=== PATIENT | female | born 1955 | race Caucasian/White ===

== ENCOUNTER 2020-09-20 17:28 | Inpatient (IN) | payer BC, OTHER ==
[~2020-09-20] VITALS: Ht 157.5 cm; Wt 59.1 kg
[~2020-09-20 17:28] MED LIST: ALPR-624 PO; BUSP10TA11 PO; CHOL100024 PO; FERR-29 PO; HYDR-3686 PO; LOSA1TAB36 PO; LOVA20TA2 PO; OMEP20TA5 PO; VENL25TA48 PO
[2020-09-20 18:15] LABS: BASOPHILS % (AUTO) 0.1 % (0-1); EOSINOPHILS % (AUTO) 0 % (0-6); HEMATOCRIT 34.4 % (35.0-45.0); HEMOGLOBIN 11.7 g/dl (12.0-16.0); LYMPHOCYTES # (AUTO) 0.9 X10'3 (1.1-4.8); LYMPHOCYTES % (AUTO) 7.5 % (21-51); MEAN CORPUSCULAR HGB CONC 34.2 g/dL (33.0-36.5); MEAN CORPUSCULAR VOLUME 96.6 FL (78-98); MONOCYTES # (AUTO) 0.7 X10'3 (0-0.9); MONOCYTES % (AUTO) 5.6 % (2-12); NEUTROPHILS # (AUTO) 10.3 X10'3 (1.8-7.7); NEUTROPHILS % (AUTO) 86.8 % (42-75); PLATELET COUNT 315 X10'3 (140-440); RED BLOOD COUNT 3.56 X10'6 (4.20-5.60); RED CELL DISTRIBUTION WIDTH 13.8 % (11.5-14.5); WHITE BLOOD COUNT 11.9 X10'3 (4.5-11.0)
[2020-09-20] MEDS ORDERED: normal saline 1000ml 1,000 ML IV ONE ×2 (18:20→19:25)
[2020-09-20] MEDS ORDERED: ondansetron/PF 4mg/2ml inj IV ONE (18:20)
--- NOTE | 2020-09-20 18:20 | NUR ---
REPORTS PAIN BECAUSE OF NO WATER THEN STATES NOT IN THAT MUCH PAIN
--- NOTE | 2020-09-20 18:28 | NUR ---
PT TO CT
[2020-09-20 18:31] LABS: CLARITY,URINE CLOUDY (Clear); COLOR,URINE YELLOW (Yellow); GLUCOSE, URINE NEGATIVE (Neg); KETONES,URINE NEGATIVE (Neg); LEUKOCYTE ESTERASE ,URINE TRACE (Neg); NITRITES, URINE NEGATIVE (Neg); OCCULT BLOOD,URINE LARGE (Neg); PROTEIN,URINE NEGATIVE (Neg); UROBILINOGEN,URINE 0.2 E.U/dL (0.2-1.0)
[2020-09-20 18:36] LABS: UA COLLECTION TYPE STRAIGHT CATH
[2020-09-20 18:38] LABS: ALANINE AMINOTRANSFERASE 14 U/L (12-78); ALBUMIN 3.6 G/DL (3.4-5.0); ALBUMIN/GLOBULIN RATIO 0.8 (1.1-1.5); ALKALINE PHOSPHATASE 111 IU/L (46-116); ANION GAP 18 (8-16); ASPARTATE AMINO TRANSFERASE 18 U/L (10-37); BILIRUBIN,TOTAL 1.4 MG/DL (0.1-1.0); BLOOD UREA NITROGEN 71 MG/DL (7-18); BUN/CREATININE RATIO 26.5 (6.6-38.0); CALCIUM 10.5 MG/DL (8.5-10.1); CHLORIDE 85 MMOL/L (99-107); CREATININE 2.68 MG/DL (0.40-0.90); GLUCOSE 145 MG/DL (70-104); SODIUM 130 MMOL/L (135-145); TOTAL CARBON DIOXIDE 27.4 MMOL/L (24-32); TOTAL PROTEIN 8.1 G/DL (6.4-8.2); eGFR 18 ML/MIN
[2020-09-20 18:39] LABS: AMORPHOUS URATES 1+; BACTERIA,URINE 4+ /HPF (Neg); RBC,URINE 20-50 /HPF (0-2); SQUAMOUS EPITHELIAL CELL,UR FEW /LPF (FEW); URIC ACID CRYSTALS 3+ /HPF (NEGATIVE); WBC,URINE 0-4 /HPF (0-4)
[2020-09-20 18:41] LABS: URINE AMPHETAMINE SCREEN NEGATIVE (Neg); URINE BARBITUATE SCREEN NEGATIVE (Neg); URINE BENZODIAZEPINES SCREEN NEGATIVE (Neg); URINE CANNABINOID SCREEN NEGATIVE (Neg); URINE COCAINE SCREEN NEGATIVE (Neg); URINE METHADONE SCREEN NEGATIVE (Neg); URINE OPIATE SCREEN NEGATIVE (Neg); URINE PHENCYCLIDINE SCREEN NEGATIVE (Neg)
[2020-09-20 18:43] LABS: POTASSIUM 2.8 MMOL/L (3.5-5.1)
[2020-09-20] MEDS ORDERED: potassium Cl 10 mEq/100mL bag IV ONE (18:45)
[2020-09-20 19:06] LABS: CREATINE KINASE 72 U/L (26-192)
--- NOTE | 2020-09-20 19:08 | NUR ---
patient in radiology
--- NOTE | 2020-09-20 19:11 | NUR ---
Sister Silvana Leeanacora [phone] called want medical information advised can not give over te;ephone she statwes she is from [place]. Advised I would have sister call her.
--- NOTE | 2020-09-20 19:13 | NUR ---
just returned from CT
--- NOTE | 2020-09-20 19:20 | NUR ---
APURVA SISTER [phone]
[2020-09-20] MEDS ORDERED: potassium Cl 20 mEq SR tablet PO PRN (19:40)
[2020-09-20] MEDS ORDERED: magnesium 2GM in 50ml NS 50 ML IV PRN (19:40)
[2020-09-20] MEDS ORDERED: mag hydrox/Alum hydrox/simeth 30ml oral suspension PO PRN (19:40)
[2020-09-20] MEDS ORDERED: magnesium hydroxide 30ml (MOM) UD suspension PO PRN (19:40)
[2020-09-20] MEDS ORDERED: potassium Cl 40MEQ/1/2NS 520ml 520 ML IV PRN ×2 (19:40)
[2020-09-20] MEDS ORDERED: magnesium Cl slow-release 64mg tablet PO PRN (19:40)
[2020-09-20] MEDS ORDERED: acetaminophen 325mg tablet PO PRN (19:40)
[2020-09-20] MEDS ORDERED: magnesium 4gm in 100ml NS 100 ML IV PRN (19:40)
[2020-09-20] MEDS ORDERED: ondansetron/PF 4mg/2ml inj IV PRN (19:40)
[2020-09-20] MEDS: K and/or MAG REPLACEMENT MC SCH (20:00)
[2020-09-20] MEDS: normal saline 1000ml 1,000 ML IV SCH (20:15)
--- NOTE | 2020-09-20 21:09 | NUR ---
PATIETN REQUESTING FOOD AND JUICE
[2020-09-20 22:00] VITALS: BP 116/75
[2020-09-20] MEDS: HYDROcodone/acetaminophen 5mg/325mg tablet PO PRN (22:34)
[2020-09-20] MEDS: potassium Cl 20 mEq SR tablet PO PRN (23:31)
[2020-09-21 02:00] VITALS: BP 126/79
[2020-09-21] MEDS: potassium Cl 20 mEq SR tablet PO PRN (03:47)
[2020-09-21] MEDS: normal saline 1000ml 1,000 ML IV SCH ×4 (03:47→23:20)
[2020-09-21 06:00] VITALS: BP 105/68
--- NOTE | 2020-09-21 06:22 | NUR ---
Problems reprioritized. Patient report given, questions answered & plan of care reviewed with OLEG CALI.
[2020-09-21 07:13] LABS: BASOPHILS % (AUTO) 0.1 % (0-1); EOSINOPHILS % (AUTO) 0.2 % (0-6); HEMATOCRIT 25.7 % (35.0-45.0); LYMPHOCYTES # (AUTO) 0.8 X10'3 (1.1-4.8); LYMPHOCYTES % (AUTO) 8.1 % (21-51); MEAN CORPUSCULAR HEMOGLOBIN 33.9 PG (27.0-31.0); MEAN CORPUSCULAR HGB CONC 34.9 g/dL (33.0-36.5); MEAN CORPUSCULAR VOLUME 97.1 FL (78-98); MEAN PLATELET VOLUME 8.8 FL (7.4-10.4); MONOCYTES # (AUTO) 0.6 X10'3 (0-0.9); MONOCYTES % (AUTO) 6.1 % (2-12); NEUTROPHILS # (AUTO) 8.7 X10'3 (1.8-7.7); NEUTROPHILS % (AUTO) 85.5 % (42-75); PLATELET COUNT 191 X10'3 (140-440); RED BLOOD COUNT 2.65 X10'6 (4.20-5.60); RED CELL DISTRIBUTION WIDTH 13.8 % (11.5-14.5); WHITE BLOOD COUNT 10.2 X10'3 (4.5-11.0)
[2020-09-21 07:32] LABS: ALANINE AMINOTRANSFERASE 9 U/L (12-78); ALBUMIN 2.6 G/DL (3.4-5.0); ALBUMIN/GLOBULIN RATIO 0.8 (1.1-1.5); ALKALINE PHOSPHATASE 75 IU/L (46-116); ANION GAP 10 (8-16); ASPARTATE AMINO TRANSFERASE 12 U/L (10-37); BILIRUBIN,TOTAL 0.9 MG/DL (0.1-1.0); BLOOD UREA NITROGEN 59 MG/DL (7-18); BUN/CREATININE RATIO 29.2 (6.6-38.0); CHLORIDE 96 MMOL/L (99-107); CREATININE 2.02 MG/DL (0.40-0.90); GLUCOSE 124 MG/DL (70-104); MAGNESIUM 2.1 MG/DL (1.5-2.4); POTASSIUM 3.5 MMOL/L (3.5-5.1); SODIUM 133 MMOL/L (135-145); TOTAL CARBON DIOXIDE 27.1 MMOL/L (24-32); TOTAL PROTEIN 5.7 G/DL (6.4-8.2); eGFR 25 ML/MIN
[2020-09-21 07:38] LABS: CALCIUM 8.2 MG/DL (8.5-10.1)
[2020-09-21] MEDS: HYDROcodone/acetaminophen 5mg/325mg tablet PO PRN ×2 (07:58→13:32)
[2020-09-21] MEDS: CefTRIAXone/D5W-Rocephin 1gm 50 ML IV SCH (08:24)
[2020-09-21] MEDS ORDERED: LOVA40TA2 PO (08:40)
[2020-09-21] MEDS ORDERED: ALBU8.5H8 INH (08:40)
[2020-09-21] MEDS ORDERED: VENL100T4 PO (08:40)
[2020-09-21] MEDS ORDERED: HYDR-3686 PO (08:40)
[2020-09-21] MEDS ORDERED: CHOL10006 PO (08:40)
[2020-09-21] MEDS ORDERED: CALC-853 PO (08:40)
[2020-09-21] MEDS ORDERED: LORA-657 PO (08:40)
[2020-09-21] MEDS ORDERED: BUSP10TA3 PO (08:40)
[2020-09-21] MEDS ORDERED: OMEP40CA13 PO (08:40)
[2020-09-21] MEDS ORDERED: LOSA100T57 PO (08:40)
[2020-09-21 11:00] VITALS: BP 98/68
[2020-09-21 15:00] VITALS: BP 149/80
--- NOTE | 2020-09-21 15:01 | NUR ---
Malnutrition consult: Pt presented with hypokalemia, acute kidney injury, and failure to thrive. Pt CT abdominal pelvis found with left renal pelvis calculi, diverticulosis, and impacted feces per MD notes. Per ED, pt reports falling multiple times in the last week and not eating for 7 days. Pt last BM 2. Noted, pt receiving regular diet, ate 25% of turkey sandwich last night 09/20. Visited pt at bed side, pt seems to be confused, pt reports not having a good appetite but shows interests in eating and drinking. Pt requested food and juice per nurse's notes 09/20. Obtained food preference, pt dislikes mayonnaise, and requested cranberry juice and apple juice with meals, d/w dietary. Encouraged pt to eat. Pt current weight is not scaled. Pt reports significant weight loss over the pass three months, however could not remember previous weight. Recommend scaled weight to be taken. There is no significant weight loss within 3 years time per weight history. Pt has no edema per EMR. During bed side visit, pt has no visible sign of orbital and clavicular muscle and fat wasting. Based from assessment, there is no evidence of malnutrition. Will continue to monitor weight and PO intake. Addendum: 09/21/20 at [address] THERESA agree with undergraduate intern note
[2020-09-21] MEDS ORDERED: albuterol 2.5 MG/3 ML nebule NEB PRN (16:15)
[2020-09-21] MEDS ORDERED: loratadine 10mg tablet PO PRN (16:15)
[2020-09-21 18:00] VITALS: BP 114/69
--- NOTE | 2020-09-21 18:11 | NUR ---
SBAR report given to William CALI, EMAR reviewed, questions answered.
--- NOTE | 2020-09-21 18:13 | NUR ---
Patient in room PCU 3027. I have received report from Jefe CALI and had the opportunity to ask questions and assume patient care.
--- NOTE | 2020-09-21 19:08 | NUR ---
intervention charting and medication reassessments not done by previous shift.
[2020-09-21] MEDS: K and/or MAG REPLACEMENT MC SCH ×2 (19:11→19:27)
[2020-09-21] MEDS: busPIRone 5mg tablet PO SCH ×2 (19:18→21:00)
[2020-09-21] MEDS: venlafaxine 25mg tablet PO SCH (19:18)
[2020-09-21] MEDS: pantoprazole 40mg Tablet.DR PO SCH (19:19)
[2020-09-21] MEDS: lactobacillus rhamnosus 10,000 MMU CELLS/CAPSULE PO SCH (19:19)
[2020-09-21 22:01] VITALS: BP 124/78
[2020-09-22] MEDS: normal saline 1000ml 1,000 ML IV SCH ×5 (01:40→16:24)
[2020-09-22 02:00] VITALS: BP 116/76
[2020-09-22 06:00] VITALS: BP 128/89
[2020-09-22 06:35] LABS: BASOPHILS % (AUTO) 0.1 % (0-1); EOSINOPHILS % (AUTO) 0.4 % (0-6); HEMATOCRIT 30.2 % (35.0-45.0); HEMOGLOBIN 10.6 g/dl (12.0-16.0); LYMPHOCYTES # (AUTO) 0.8 X10'3 (1.1-4.8); MEAN CORPUSCULAR HEMOGLOBIN 34.1 PG (27.0-31.0); MEAN CORPUSCULAR VOLUME 97.3 FL (78-98); MEAN PLATELET VOLUME 8.6 FL (7.4-10.4); MONOCYTES # (AUTO) 0.6 X10'3 (0-0.9); MONOCYTES % (AUTO) 6.5 % (2-12); NEUTROPHILS # (AUTO) 7.8 X10'3 (1.8-7.7); PLATELET COUNT 192 X10'3 (140-440); RED CELL DISTRIBUTION WIDTH 13.9 % (11.5-14.5); WHITE BLOOD COUNT 9.3 X10'3 (4.5-11.0)
[2020-09-22 07:01] LABS: ALANINE AMINOTRANSFERASE 10 U/L (12-78); ALBUMIN 2.6 G/DL (3.4-5.0); ALBUMIN/GLOBULIN RATIO 0.7 (1.1-1.5); ALKALINE PHOSPHATASE 75 IU/L (46-116); ANION GAP 12 (8-16); ASPARTATE AMINO TRANSFERASE 13 U/L (10-37); BILIRUBIN,TOTAL 0.7 MG/DL (0.1-1.0); BLOOD UREA NITROGEN 40 MG/DL (7-18); BUN/CREATININE RATIO 28.6 (6.6-38.0); CALCIUM 8.5 MG/DL (8.5-10.1); CHLORIDE 96 MMOL/L (99-107); GLUCOSE 94 MG/DL (70-104); MAGNESIUM 1.9 MG/DL (1.5-2.4); POTASSIUM 3.6 MMOL/L (3.5-5.1); SODIUM 131 MMOL/L (135-145); TOTAL CARBON DIOXIDE 22.8 MMOL/L (24-32); TOTAL PROTEIN 6.1 G/DL (6.4-8.2); eGFR 38 ML/MIN
[2020-09-22] MEDS: CefTRIAXone/D5W-Rocephin 1gm 50 ML IV SCH (07:54)
[2020-09-22] MEDS: vitamin D (cholecalciferol) 1,000 unit tablet PO SCH (07:58)
[2020-09-22] MEDS: busPIRone 5mg tablet PO SCH ×4 (07:58→22:42)
[2020-09-22] MEDS: lactobacillus rhamnosus 10,000 MMU CELLS/CAPSULE PO SCH ×2 (07:58→20:03)
[2020-09-22] MEDS: venlafaxine 25mg tablet PO SCH ×2 (07:58→20:04)
[2020-09-22] MEDS: atorvastatin 10mg tablet PO SCH (07:58)
[2020-09-22] MEDS: pantoprazole 40mg Tablet.DR PO SCH ×2 (07:58→20:04)
[2020-09-22] MEDS: calcium carbonate/vitamin D3 tablet PO SCH (07:59)
[2020-09-22] MEDS: HYDROcodone/acetaminophen 5mg/325mg tablet PO PRN ×4 (07:59→22:42)
[2020-09-22] MEDS: K and/or MAG REPLACEMENT MC SCH ×2 (08:02→20:00)
[2020-09-22 10:00] VITALS: BP 118/56
--- NOTE | 2020-09-22 10:20 | NUR ---
pt BP dropped to 69/47, pt became dizzy while standing with PT, pt returned to bed BP now 97/63, and pt no longer dizzy.
--- NOTE | 2020-09-22 12:45 | NUR ---
Patient in room U 3027. I have received report from MURALI CALI and had the opportunity to ask questions and assume patient care. PT RELAXING. CALL LIGHT IN REACH Addendum: 09/22/20 at 1610 by Lexus Sauceda RN Amended: Links added.
--- NOTE | 2020-09-22 13:32 | NUR ---
Received TC from RN that pt requesting to speak with RD for food preferences. Pt on a regular diet documented with 0-25% PO intake and meal refusals. Pt seen at bedside, food preferences were obtained for dinner tonight and breakfast tomorrow which were d/w dietary. Pt states she is not getting what she is requesting, including current lunch tray, however noted that pt received the food that was selected on menu visible at bedside. RD educated patient on how to fill out her menu in order to choose what she receives on meal trays. RD d/w dietary to visit patient daily to further assist with menu selection. Pt provided with alternative regular menu and RD contact information. RD encouraged PO intake and for pt to reach out for any further food preferences. Will continue to follow closely. Addendum: 09/22/20 at [address] Amended: Links added.
--- NOTE | 2020-09-22 15:15 | NUR ---
Problems reprioritized. Patient report given, questions answered & plan of care reviewed with EVANS CALI. Addendum: 09/22/20 at 1611 by Lexus Sauceda RN Amended: Links added.
--- NOTE | 2020-09-22 15:24 | NUR ---
Patient in room PCU 3027. I have received report from KARELY Alberts and had the opportunity to ask questions and assume patient care.
[2020-09-22 15:57] VITALS: BP 98/65
--- NOTE | 2020-09-22 18:21 | NUR ---
Problems reprioritized. Patient report given, questions answered & plan of care reviewed with KARELY Christie.
[2020-09-22 19:00] VITALS: BP 102/70
[2020-09-22 23:00] VITALS: BP 114/63
[2020-09-23] VITALS (7 sets, daily range): BP systolic 80–109; BP diastolic 36–68
--- NOTE | 2020-09-23 06:26 | NUR ---
Patient in room PCU 3027. I have received report from KARELY Christie and had the opportunity to ask questions and assume patient care.
[2020-09-23 06:52] LABS: EOSINOPHILS # (AUTO) 0.1 X10'3 (0-0.9); WHITE BLOOD COUNT 6.1 X10'3 (4.5-11.0)
[2020-09-23 06:56] LABS: BASOPHILS % (AUTO) 0.1 % (0-1); EOSINOPHILS % (AUTO) 1.1 % (0-6); HEMATOCRIT 23.2 % (35.0-45.0); HEMOGLOBIN 8.2 g/dl (12.0-16.0); LYMPHOCYTES % (AUTO) 17.1 % (21-51); MEAN CORPUSCULAR HEMOGLOBIN 34.2 PG (27.0-31.0); MEAN CORPUSCULAR HGB CONC 35.4 g/dL (33.0-36.5); MEAN CORPUSCULAR VOLUME 96.4 FL (78-98); MEAN PLATELET VOLUME 8.6 FL (7.4-10.4); MONOCYTES # (AUTO) 0.4 X10'3 (0-0.9); MONOCYTES % (AUTO) 6.3 % (2-12); NEUTROPHILS # (AUTO) 4.6 X10'3 (1.8-7.7); NEUTROPHILS % (AUTO) 75.4 % (42-75); PLATELET COUNT 164 X10'3 (140-440); RED BLOOD COUNT 2.41 X10'6 (4.20-5.60); RED CELL DISTRIBUTION WIDTH 13.7 % (11.5-14.5)
[2020-09-23 07:24] LABS: ALANINE AMINOTRANSFERASE 8 U/L (12-78); ALBUMIN 2.1 G/DL (3.4-5.0); ALBUMIN/GLOBULIN RATIO 0.7 (1.1-1.5); ALKALINE PHOSPHATASE 65 IU/L (46-116); ANION GAP 9 (8-16); ASPARTATE AMINO TRANSFERASE 10 U/L (10-37); BILIRUBIN,TOTAL 0.5 MG/DL (0.1-1.0); BLOOD UREA NITROGEN 27 MG/DL (7-18); BUN/CREATININE RATIO 22.9 (6.6-38.0); CALCIUM 8.4 MG/DL (8.5-10.1); CHLORIDE 101 MMOL/L (99-107); CREATININE 1.18 MG/DL (0.40-0.90); GLUCOSE 76 MG/DL (70-104); MAGNESIUM 1.6 MG/DL (1.5-2.4); POTASSIUM 3.5 MMOL/L (3.5-5.1); SODIUM 134 MMOL/L (135-145); TOTAL CARBON DIOXIDE 23.9 MMOL/L (24-32); TOTAL PROTEIN 5.1 G/DL (6.4-8.2); eGFR 46 ML/MIN
[2020-09-23] MEDS: K and/or MAG REPLACEMENT MC SCH ×2 (08:00→20:00)
--- NOTE | 2020-09-23 08:37 | NUR ---
I documented that the patient's norco reassessment wasn't done because it was to be documented on 09/22/20 at 2342, I was not here at this time.
[2020-09-23] MEDS: CefTRIAXone/D5W-Rocephin 1gm 50 ML IV SCH (08:39)
[2020-09-23] MEDS: normal saline 1000ml 1,000 ML IV SCH ×2 (08:39→13:36)
[2020-09-23] MEDS: venlafaxine 25mg tablet PO SCH ×2 (08:40→19:59)
[2020-09-23] MEDS: pantoprazole 40mg Tablet.DR PO SCH ×2 (08:40→19:59)
[2020-09-23] MEDS: lactobacillus rhamnosus 10,000 MMU CELLS/CAPSULE PO SCH (08:41)
[2020-09-23] MEDS: calcium carbonate/vitamin D3 tablet PO SCH (08:41)
[2020-09-23] MEDS: vitamin D (cholecalciferol) 1,000 unit tablet PO SCH (08:41)
[2020-09-23] MEDS: busPIRone 5mg tablet PO SCH ×4 (08:41→22:32)
[2020-09-23] MEDS: atorvastatin 10mg tablet PO SCH (08:41)
[2020-09-23] MEDS: HYDROcodone/acetaminophen 5mg/325mg tablet PO PRN ×2 (08:44→13:35)
--- NOTE | 2020-09-23 18:34 | NUR ---
Problems reprioritized. Patient report given, questions answered & plan of care reviewed with KARELY Christie.
[2020-09-23] MEDS: polyethylene glycol 3350 17gm powd pack PO SCH (22:32)
[2020-09-24] VITALS (8 sets, daily range): BP systolic 75–146; BP diastolic 54–76
[2020-09-24] MEDS: normal saline 1000ml 1,000 ML IV SCH ×2 (04:40→15:12)
--- NOTE | 2020-09-24 06:29 | NUR ---
Patient in room PCU 3027. I have received report from Shahnaz CALI and had the opportunity to ask questions and assume patient care.
[2020-09-24] MEDS: atorvastatin 10mg tablet PO SCH (07:43)
[2020-09-24] MEDS: busPIRone 5mg tablet PO SCH ×4 (07:43→20:50)
[2020-09-24] MEDS: venlafaxine 25mg tablet PO SCH ×2 (07:43→20:50)
[2020-09-24] MEDS: pantoprazole 40mg Tablet.DR PO SCH ×2 (07:43→20:50)
[2020-09-24] MEDS: vitamin D (cholecalciferol) 1,000 unit tablet PO SCH (07:43)
[2020-09-24] MEDS: calcium carbonate/vitamin D3 tablet PO SCH (07:44)
[2020-09-24] MEDS: HYDROcodone/acetaminophen 5mg/325mg tablet PO PRN ×2 (07:45→20:49)
[2020-09-24] MEDS: K and/or MAG REPLACEMENT MC SCH ×2 (08:00→19:51)
--- NOTE | 2020-09-24 10:03 | NUR ---
I let Dr. Clark know that special education secretary tried to draw blood on this patient but not successful as it was a difficult draw. I told him that I will also look at patient's vein to see if I can draw blood. Per Dr. Clark, it is okay not to do it if we could not really get the blood sample
[2020-09-24] MEDS ORDERED: fludrocortisone acetate 0.1mg tablet PO ONE (10:15)
[2020-09-24 11:14] LABS: BASOPHILS % (AUTO) 0.2 % (0-1); EOSINOPHILS # (AUTO) 0.1 X10'3 (0-0.9); EOSINOPHILS % (AUTO) 0.9 % (0-6); HEMATOCRIT 25.9 % (35.0-45.0); HEMOGLOBIN 8.8 g/dl (12.0-16.0); LYMPHOCYTES # (AUTO) 1.2 X10'3 (1.1-4.8); LYMPHOCYTES % (AUTO) 13.8 % (21-51); MEAN CORPUSCULAR HEMOGLOBIN 33.7 PG (27.0-31.0); MEAN CORPUSCULAR HGB CONC 33.9 g/dL (33.0-36.5); MEAN CORPUSCULAR VOLUME 99.3 FL (78-98); MONOCYTES # (AUTO) 0.6 X10'3 (0-0.9); MONOCYTES % (AUTO) 7.7 % (2-12); NEUTROPHILS # (AUTO) 6.5 X10'3 (1.8-7.7); NEUTROPHILS % (AUTO) 77.4 % (42-75); PLATELET COUNT 218 X10'3 (140-440); RED BLOOD COUNT 2.61 X10'6 (4.20-5.60); WHITE BLOOD COUNT 8.4 X10'3 (4.5-11.0)
[2020-09-24 11:15] LABS: % IRON SATURATION 18 % (11-46); IRON 33 UG/DL (49-151); TOTAL IRON BINDING CAPACITY 179 UG/DL (259-388)
[2020-09-24 11:18] LABS: ALANINE AMINOTRANSFERASE 8 U/L (12-78); ALBUMIN 2.3 G/DL (3.4-5.0); ALBUMIN/GLOBULIN RATIO 0.7 (1.1-1.5); ALKALINE PHOSPHATASE 75 IU/L (46-116); ANION GAP 11 (8-16); ASPARTATE AMINO TRANSFERASE 12 U/L (10-37); BILIRUBIN,TOTAL 0.6 MG/DL (0.1-1.0); BLOOD UREA NITROGEN 18 MG/DL (7-18); BUN/CREATININE RATIO 15.9 (6.6-38.0); CALCIUM 8.5 MG/DL (8.5-10.1); CHLORIDE 102 MMOL/L (99-107); CREATININE 1.13 MG/DL (0.40-0.90); GLUCOSE 97 MG/DL (70-104); MAGNESIUM 1.3 MG/DL (1.5-2.4); POTASSIUM 3.2 MMOL/L (3.5-5.1); SODIUM 135 MMOL/L (135-145); TOTAL CARBON DIOXIDE 22.3 MMOL/L (24-32); TOTAL PROTEIN 5.6 G/DL (6.4-8.2); eGFR 48 ML/MIN
--- NOTE | 2020-09-24 13:09 | NUR ---
Paged Dr. Clark PAGER ID: [phone] MESSAGE: PAIGE Rene RN ext [phone]. RE: Jen Gannon. K is 3.2 today, K replacement protocol order fell off. Can we renew the K replacement protocol order?
[2020-09-24] MEDS ORDERED: potassium Cl 40MEQ/1/2NS 520ml 520 ML IV PRN (13:15)
[2020-09-24] MEDS ORDERED: potassium Cl 20 mEq SR tablet PO PRN (13:15)
[2020-09-24] MEDS ORDERED: magnesium 4gm in 100ml NS 100 ML IV PRN (13:15)
[2020-09-24] MEDS: potassium Cl 20 mEq SR tablet PO PRN ×2 (13:29→17:44)
--- NOTE | 2020-09-24 13:57 | NUR ---
Madi salazar stocking applied as per doctor's order
--- NOTE | 2020-09-24 15:08 | NUR ---
Report given to Nasrin CALI from Surgical Unit
--- NOTE | 2020-09-24 15:08 | NUR ---
Patient in room MALLORY 359. I have received report from Lisa CALI PCU and had the opportunity to ask questions. Will assume pt care once to unit.
[2020-09-24] MEDS: magnesium Cl slow-release 64mg tablet PO PRN ×2 (15:12→20:48)
--- NOTE | 2020-09-24 15:25 | NUR ---
Pt arrived to Surgical Unit, A&Ox4, no c/o at this time, no s/sx distress/discomfort. Pt assessed, PIV to LFA patent infusing fluids per MD orders. Pt oriented to unit. Will continue to monitor. Addendum: 09/24/20 at 1601 by Kell Burton RN PIV is on RFA.
--- NOTE | 2020-09-24 15:39 | NUR ---
Patient transferred to Surgical Unit room 359A with all her belongings with her.
--- NOTE | 2020-09-24 16:01 | NUR ---
Initial: PO intake has improved from 0-25% to 25-49%, regular diet. Admit with FATEMEH possibly d/t volume depletion per physician progress note, hypokalemia, h/o HTN/HLD, GERD. Potassium is low, receiving IV replacement as needed. Patient has spoken with RD for food preferences as well as to chief of internal medicine. Recommend: 1. continue regular diet 2. honor food preferences 3. encourage PO intake 4. wt per rx 5. monitor need for ONS if intake does not continue to improve Addendum: 09/24/20 at [address] Amended: Links added.
--- NOTE | 2020-09-24 18:32 | NUR ---
Problems reprioritized. Patient report given, questions answered & plan of care reviewed with "Dee Dee CALI.
--- NOTE | 2020-09-24 19:08 | NUR ---
Patient in room MALLORY 359. I have received report from Nasrin CALI and had the opportunity to ask questions and assume patient care.
[2020-09-24] MEDS: polyethylene glycol 3350 17gm powd pack PO SCH (20:52)
[2020-09-25] VITALS (8 sets, daily range): BP systolic 95–151; BP diastolic 59–95
[2020-09-25] MEDS: normal saline 1000ml 1,000 ML IV SCH ×2 (02:51→19:51)
--- NOTE | 2020-09-25 06:09 | NUR ---
Patient in room MALLORY 359. I have received report from Dee Dee CALI and had the opportunity to ask questions and assume patient care.
--- NOTE | 2020-09-25 06:09 | NUR ---
Problems reprioritized. Patient report given, questions answered & plan of care reviewed with Edgard CALI.
--- NOTE | 2020-09-25 06:44 | NUR ---
Patient refused blood draw, she apparently got upset because the bench assembler operator has to draw blood from her. I was there at bedside when patient was cussing at the 2 phlebotomists. Patient was using profanity words. I asked her not to say those words. I also explained to her that it is important that we reevaluate her lab results today especially her K and Mg were both low yesterday and replaced them. Patient continue to be agitated and asked me and the bench assembler operator to get out of the room. I told patient that I will let the doctor know she did not like to have blood draw anymore. Addendum: 09/25/20 at 1024 by Edgard Meza RN Dr. Clark notified about patient refusal of blood draw today, he said it was fine.
[2020-09-25] MEDS: K and/or MAG REPLACEMENT MC SCH ×2 (08:00→20:00)
[2020-09-25] MEDS ORDERED: fludrocortisone acetate 0.1mg tablet PO SCH (08:30)
[2020-09-25] MEDS: calcium carbonate/vitamin D3 tablet PO SCH (08:56)
[2020-09-25] MEDS: vitamin D (cholecalciferol) 1,000 unit tablet PO SCH (08:56)
[2020-09-25] MEDS: venlafaxine 25mg tablet PO SCH ×2 (08:56→20:39)
[2020-09-25] MEDS: busPIRone 5mg tablet PO SCH ×4 (08:57→20:39)
[2020-09-25] MEDS: pantoprazole 40mg Tablet.DR PO SCH ×2 (08:57→20:39)
[2020-09-25] MEDS: atorvastatin 10mg tablet PO SCH (08:57)
[2020-09-25] MEDS ORDERED: iron sucrose complex injection 200 MG in normal saline 100ml IV soln 100 ML IV SCH (09:20)
--- NOTE | 2020-09-25 10:24 | NUR ---
Paged Dr. Clark PAGER ID: [phone] MESSAGE: Radha Rene RN ext [phone]. RE: Jen Gannon. Orthostatic BP lying 123/74, sitting 110/76, standing 92/59.
[2020-09-25] MEDS ORDERED: fludrocortisone acetate 0.1mg tablet PO ONE (14:25)
--- NOTE | 2020-09-25 18:26 | NUR ---
Problems reprioritized. Patient report given, questions answered & plan of care reviewed with Dee Dee CALI.
--- NOTE | 2020-09-25 18:27 | NUR ---
Patient in room MALLORY 359. I have received report from Edgard CALI and had the opportunity to ask questions and assume patient care.
--- NOTE | 2020-09-25 19:52 | NUR ---
Pt IV leaking from insertion site and unable to be saved. IV discontinued. Pt refusing new IV at this time.
[2020-09-25] MEDS: polyethylene glycol 3350 17gm powd pack PO SCH (20:41)
--- NOTE | 2020-09-25 22:04 | NUR ---
Pt educated to the necessity of IV. Pt still refusing.
[2020-09-26] MEDS: normal saline 1000ml 1,000 ML IV SCH ×2 (03:20→09:27)
--- NOTE | 2020-09-26 06:34 | NUR ---
Problems reprioritized. Patient report given, questions answered & plan of care reviewed with Sky CALI.
--- NOTE | 2020-09-26 06:54 | NUR ---
Patient in room MALLORY 359. I have received report from KARELY Funez and had the opportunity to ask questions and assume patient care.
[2020-09-26 07:03] VITALS: BP 128/83
[2020-09-26 07:08] LABS: BASOPHILS % (AUTO) 0.3 % (0-1); EOSINOPHILS # (AUTO) 0.1 X10'3 (0-0.9); EOSINOPHILS % (AUTO) 0.9 % (0-6); HEMOGLOBIN 7.5 g/dl (12.0-16.0); LYMPHOCYTES # (AUTO) 1.2 X10'3 (1.1-4.8); LYMPHOCYTES % (AUTO) 15.9 % (21-51); MEAN CORPUSCULAR HEMOGLOBIN 34.3 PG (27.0-31.0); MEAN CORPUSCULAR HGB CONC 35.5 g/dL (33.0-36.5); MEAN CORPUSCULAR VOLUME 96.8 FL (78-98); MEAN PLATELET VOLUME 7.4 FL (7.4-10.4); MONOCYTES # (AUTO) 0.7 X10'3 (0-0.9); MONOCYTES % (AUTO) 9.6 % (2-12); NEUTROPHILS # (AUTO) 5.4 X10'3 (1.8-7.7); NEUTROPHILS % (AUTO) 73.3 % (42-75); PLATELET COUNT 200 X10'3 (140-440); RED BLOOD COUNT 2.18 X10'6 (4.20-5.60); RED CELL DISTRIBUTION WIDTH 14.4 % (11.5-14.5); WHITE BLOOD COUNT 7.4 X10'3 (4.5-11.0)
[2020-09-26 07:16] LABS: HEMATOCRIT 21.1 % (35.0-45.0)
--- NOTE | 2020-09-26 07:34 | NUR ---
Dr Sam PAGER ID: [phone] MESSAGE: Jarad- Jen Gannon- Critical [facility] 21.1- [place] [phone]
[2020-09-26 07:58] LABS: ALANINE AMINOTRANSFERASE 8 U/L (12-78); ALBUMIN/GLOBULIN RATIO 0.6 (1.1-1.5); ALKALINE PHOSPHATASE 78 IU/L (46-116); ANION GAP 12 (8-16); ASPARTATE AMINO TRANSFERASE 11 U/L (10-37); BILIRUBIN,TOTAL 0.7 MG/DL (0.1-1.0); BLOOD UREA NITROGEN 11 MG/DL (7-18); BUN/CREATININE RATIO 11.5 (6.6-38.0); CALCIUM 8.6 MG/DL (8.5-10.1); CHLORIDE 107 MMOL/L (99-107); CREATININE 0.96 MG/DL (0.40-0.90); GLUCOSE 89 MG/DL (70-104); MAGNESIUM 1.3 MG/DL (1.5-2.4); POTASSIUM 3.3 MMOL/L (3.5-5.1); SODIUM 138 MMOL/L (135-145); TOTAL PROTEIN 5.1 G/DL (6.4-8.2); eGFR 59 ML/MIN
[2020-09-26 08:00] VITALS: BP_SYST 112; BP_SYST 122; BP_SYST 128; BP_DIAS 70; BP_DIAS 83; BP_DIAS 84
[2020-09-26] MEDS: K and/or MAG REPLACEMENT MC SCH ×2 (08:00→20:00)
[2020-09-26] MEDS: calcium carbonate/vitamin D3 tablet PO SCH (08:11)
[2020-09-26] MEDS: busPIRone 5mg tablet PO SCH ×4 (08:12→20:55)
[2020-09-26] MEDS: venlafaxine 25mg tablet PO SCH ×2 (08:12→20:55)
[2020-09-26] MEDS: atorvastatin 10mg tablet PO SCH (08:12)
[2020-09-26] MEDS: vitamin D (cholecalciferol) 1,000 unit tablet PO SCH (08:12)
[2020-09-26] MEDS: fludrocortisone acetate 0.1mg tablet PO SCH (08:12)
[2020-09-26] MEDS: pantoprazole 40mg Tablet.DR PO SCH ×2 (08:12→20:55)
[2020-09-26] MEDS: HYDROcodone/acetaminophen 5mg/325mg tablet PO PRN ×2 (08:13→15:46)
[2020-09-26] MEDS: magnesium Cl slow-release 64mg tablet PO PRN ×2 (08:17→20:55)
[2020-09-26] MEDS: potassium Cl 20 mEq SR tablet PO PRN ×3 (08:17→20:55)
--- NOTE | 2020-09-26 08:43 | NUR ---
PICC RN at patient's bedside to insert IV.
[2020-09-26] MEDS: iron sucrose complex injection 200 MG in normal saline 100ml IV soln 90 ML IV SCH (09:27)
[2020-09-26 11:00] VITALS: BP 137/85
--- NOTE | 2020-09-26 17:16 | NUR ---
Patient has had briefs on and requests to have another brief on when lorelei care provided for incontinence. Patient educated briefs can cause skin breakdown and in able to help maintain skin integrity and prevent skin breakdown that patient should not wear briefs however patient adamant that she keeps a brief on. Patient has been offered wick but refuses. Will continue to monitor.
--- NOTE | 2020-09-26 18:44 | NUR ---
Problems reprioritized. Patient report given, questions answered & plan of care reviewed with KARELY ROGERS.
--- NOTE | 2020-09-26 18:44 | NUR ---
Patient in room MALLORY 359. I have received report from KARELY Swanson and had the opportunity to ask questions and assume patient care.
[2020-09-26 20:00] VITALS: BP_SYST 109; BP_SYST 122; BP_SYST 96; BP_DIAS 67; BP_DIAS 70; BP_DIAS 75
[2020-09-26] MEDS: polyethylene glycol 3350 17gm powd pack PO SCH (21:00)
[2020-09-27] VITALS: BP 127/77
[2020-09-27] MEDS: HYDROcodone/acetaminophen 5mg/325mg tablet PO PRN (02:33)
[2020-09-27] MEDS: normal saline 1000ml 1,000 ML IV SCH ×2 (04:26→17:46)
--- NOTE | 2020-09-27 06:20 | NUR ---
Problems reprioritized. Patient report given, questions answered & plan of care reviewed with KARELY Swanson.
[2020-09-27] MEDS: K and/or MAG REPLACEMENT MC SCH ×2 (08:00→20:00)
[2020-09-27 08:02] LABS: BASOPHILS % (AUTO) 0.3 % (0-1); EOSINOPHILS # (AUTO) 0.1 X10'3 (0-0.9); HEMOGLOBIN 7.1 g/dl (12.0-16.0); LYMPHOCYTES # (AUTO) 1.1 X10'3 (1.1-4.8); LYMPHOCYTES % (AUTO) 15.4 % (21-51); MEAN CORPUSCULAR HEMOGLOBIN 33.7 PG (27.0-31.0); MEAN CORPUSCULAR HGB CONC 34.3 g/dL (33.0-36.5); MEAN CORPUSCULAR VOLUME 98.1 FL (78-98); MONOCYTES # (AUTO) 0.7 X10'3 (0-0.9); MONOCYTES % (AUTO) 10.1 % (2-12); NEUTROPHILS # (AUTO) 5.4 X10'3 (1.8-7.7); NEUTROPHILS % (AUTO) 73.2 % (42-75); PLATELET COUNT 193 X10'3 (140-440); RED BLOOD COUNT 2.12 X10'6 (4.20-5.60); RED CELL DISTRIBUTION WIDTH 13.9 % (11.5-14.5); WHITE BLOOD COUNT 7.4 X10'3 (4.5-11.0)
[2020-09-27 08:10] VITALS: BP 128/88
[2020-09-27 08:19] LABS: HEMATOCRIT 20.8 % (35.0-45.0)
[2020-09-27 08:22] LABS: ALANINE AMINOTRANSFERASE 7 U/L (12-78); ALBUMIN/GLOBULIN RATIO 0.7 (1.1-1.5); ALKALINE PHOSPHATASE 84 IU/L (46-116); ANION GAP 10 (8-16); ASPARTATE AMINO TRANSFERASE 10 U/L (10-37); BILIRUBIN,TOTAL 0.6 MG/DL (0.1-1.0); BLOOD UREA NITROGEN 8 MG/DL (7-18); BUN/CREATININE RATIO 8.2 (6.6-38.0); CHLORIDE 111 MMOL/L (99-107); CREATININE 0.98 MG/DL (0.40-0.90); GLUCOSE 84 MG/DL (70-104); MAGNESIUM 1.3 MG/DL (1.5-2.4); SODIUM 141 MMOL/L (135-145); TOTAL CARBON DIOXIDE 19.8 MMOL/L (24-32); TOTAL PROTEIN 4.9 G/DL (6.4-8.2); eGFR 57 ML/MIN
--- NOTE | 2020-09-27 08:23 | NUR ---
Dr AREVALO PAGER ID: [phone] MESSAGE: RosieA- Jen Gannon- critical [facility] 20.8. [id number]
[2020-09-27 08:24] VITALS: BP_SYST 108; BP_SYST 118; BP_SYST 128; BP_DIAS 71; BP_DIAS 76; BP_DIAS 88
[2020-09-27] MEDS: magnesium Cl slow-release 64mg tablet PO PRN (09:22)
[2020-09-27] MEDS: vitamin D (cholecalciferol) 1,000 unit tablet PO SCH (09:24)
[2020-09-27] MEDS: venlafaxine 25mg tablet PO SCH ×2 (09:26→20:51)
[2020-09-27] MEDS: atorvastatin 10mg tablet PO SCH (09:26)
[2020-09-27] MEDS: fludrocortisone acetate 0.1mg tablet PO SCH (09:28)
[2020-09-27] MEDS: pantoprazole 40mg Tablet.DR PO SCH ×2 (09:28→20:51)
[2020-09-27] MEDS: busPIRone 5mg tablet PO SCH ×4 (09:29→20:52)
[2020-09-27] MEDS: calcium carbonate/vitamin D3 tablet PO SCH (09:29)
[2020-09-27] MEDS: iron sucrose complex injection 200 MG in normal saline 100ml IV soln 90 ML IV SCH (09:30)
--- NOTE | 2020-09-27 10:43 | NUR ---
Student documentation: I have reviewed all interventions, assessments performed and documented by [Marta Weir [facility]].
--- NOTE | 2020-09-27 10:46 | NUR ---
Student documentation: I have reviewed interventions, assessments performed and documented by Marta HUTCHINS [facility].
--- NOTE | 2020-09-27 11:47 | NUR ---
Reassessment: Patient's PO intake fluctuates though continues to improve with documented 25-50% and 75-100% PO intake. Pt working with principal clerk typist for food preferences and has RD contact information for further food preferences. [facility] 09/27. Will continue to follow closely and monitor need for nutrition intervention. Recommend: 1. continue regular diet 2. honor food preferences 3. encourage PO intake 4. scaled wts per rx 5. monitor need for ONS if intake does not continue to improve Addendum: 09/27/20 at [address] Amended: Links added.
[2020-09-27 11:50] VITALS: BP 138/81
--- NOTE | 2020-09-27 12:14 | NUR ---
Dr. Sam in to see patient.
[2020-09-27 13:28] LABS: HEMATOCRIT 22.4 % (35.0-45.0); HEMOGLOBIN 7.6 g/dl (12.0-16.0); MEAN CORPUSCULAR HEMOGLOBIN 33.6 PG (27.0-31.0); MEAN CORPUSCULAR HGB CONC 33.7 g/dL (33.0-36.5); MEAN CORPUSCULAR VOLUME 99.5 FL (78-98); MEAN PLATELET VOLUME 7.6 FL (7.4-10.4); PLATELET COUNT 233 X10'3 (140-440); RED BLOOD COUNT 2.25 X10'6 (4.20-5.60); RED CELL DISTRIBUTION WIDTH 14.3 % (11.5-14.5); WHITE BLOOD COUNT 7.8 X10'3 (4.5-11.0)
--- NOTE | 2020-09-27 16:27 | NUR ---
Dr Sam PAGER ID: [phone] MESSAGE: [id number]- Jen Gannon- stool sample sent. H/H now 7.6/22.4 from this morning 7.1/20.8- Sky [id number]
[2020-09-27 17:44] LABS: OCCULT BLOOD STOOL NEGATIVE (Neg)
[2020-09-27] MEDS: sodium bicarbonate 650mg tablet PO SCH ×2 (17:46→20:51)
[2020-09-27 18:00] VITALS: BP 120/78
--- NOTE | 2020-09-27 18:28 | NUR ---
Problems reprioritized. Patient report given, questions answered & plan of care reviewed with KARELY Fitzpatrick.
--- NOTE | 2020-09-27 18:37 | NUR ---
Patient in room MALLORY 359. I have received report from KARELY Swanson and had the opportunity to ask questions and assume patient care
[2020-09-27] MEDS ORDERED: magnesium 4gm in 100ml NS 100 ML IV PRN (19:15)
[2020-09-27] MEDS ORDERED: potassium Cl 20 mEq SR tablet PO PRN ×2 (19:15)
[2020-09-27] MEDS ORDERED: magnesium Cl slow-release 64mg tablet PO PRN (19:15)
[2020-09-27] MEDS ORDERED: potassium Cl 40MEQ/1/2NS 520ml 520 ML IV PRN (19:15)
[2020-09-27] MEDS: polyethylene glycol 3350 17gm powd pack PO SCH (21:00)
[2020-09-28] MEDS: normal saline 1000ml 1,000 ML IV SCH (05:49)
--- NOTE | 2020-09-28 06:28 | NUR ---
Problems reprioritized. Patient report given, questions answered & plan of care reviewed with KARELY Araujo.
[2020-09-28 06:54] VITALS: BP 143/83
[2020-09-28 08:00] VITALS: BP_SYST 121; BP_SYST 127; BP_SYST 149; BP_DIAS 74; BP_DIAS 82; BP_DIAS 86
[2020-09-28] MEDS: K and/or MAG REPLACEMENT MC SCH (08:00)
[2020-09-28] MEDS: iron sucrose complex injection 200 MG in normal saline 100ml IV soln 90 ML IV SCH (08:57)
[2020-09-28] MEDS: busPIRone 5mg tablet PO SCH ×2 (08:57→12:39)
[2020-09-28] MEDS: venlafaxine 25mg tablet PO SCH (08:57)
[2020-09-28] MEDS: sodium bicarbonate 650mg tablet PO SCH ×2 (08:59→12:39)
[2020-09-28] MEDS: vitamin D (cholecalciferol) 1,000 unit tablet PO SCH (08:59)
[2020-09-28] MEDS: calcium carbonate/vitamin D3 tablet PO SCH (08:59)
[2020-09-28] MEDS: pantoprazole 40mg Tablet.DR PO SCH (08:59)
[2020-09-28] MEDS: fludrocortisone acetate 0.1mg tablet PO SCH (08:59)
[2020-09-28] MEDS: atorvastatin 10mg tablet PO SCH (08:59)
[2020-09-28] MEDS ORDERED: sodium bicarbonate tablet PO (10:58)
[2020-09-28] MEDS ORDERED: FLO0.1T PO (10:58)
[2020-09-28 11:00] VITALS: BP 143/89
[2020-09-28] MEDS ORDERED: SODI650T29 PO (11:03)
[2020-09-28] MEDS ORDERED: FERR325T28 PO (11:03)
[2020-09-28] MEDS ORDERED: ASCO500C18 PO (11:03)
--- NOTE | 2020-09-28 16:31 | NUR ---
Pt is ready for discharge but her house keys are with "Jona" a industrial waste inspector at her mobile home park. Jona' phone number is in pt's phone which has a battery and no boiler cleaner. PAGE Cloud states she knows where Jona lives and will drive to his house for pt's keys. Pt verbalized permission saying, "OH GOOD!! Thank you!". Pt is being driven to pharmacy for d/c'g meds and then to her home by cab. KARELY Araujo is aware. Addendum: 09/28/20 at 1641 by Amy Sagastume RN PAGE Cloud, stated she was able to contact Jona and he will meet pt at her house when she arrives. KARELY Araujo, & pt notified.
--- NOTE | 2020-09-28 16:40 | NUR ---
Patient discharged home via cab and taken from unit via wheelchair with x1 staff. Patient PIV removed with cannula intact. Patient discharge instructions discussed with patient and sister (who lives in [place], [place]) Patient and family both stated an understanding. Discharge instructions included medication, following up, risk factors, and when to seek medical attention. Patient was alert, oriented and in no apparent distress at time of discharge. Patient was getting a ride home and to flower buncher or picker new medications via a cab. Patient also was arranged to meet up with a person named Jona who evidently had her house rodriguez.
--- NOTE | 2020-10-01 16:07 | NUR ---
CASE MANAGEMENT DISCHARGE FOLLOWUP: T/c to pt's number, automated commercial response. 2 other numbers listed for patient are inactive. Attempt to contact pt via Dariela, states has not talked to pt in over a year. Given pt's email address. Sent email to pt requesting that she call this nurse. Addendum: 10/01/20 at 1620 by Julissa Gomez RN Received notice that email could not be sent. Unable to contact pt.
== END 2020-09-28 16:38 | disposition home or self-care (01) | DRG 683 ==
LOC: ER 17:28 → ED HOLD 19:38 → PCU 3S 21:40 → SUR 3N 09-24 15:27
PROVIDERS: ADMIT Family Medicine; ATTEND Family Medicine
DX: N17.9 Acute kidney failure, unspecified (principal); E87.1 Hypo-osmolality and hyponatremia; I95.1 Orthostatic hypotension; D63.8 Anemia in other chronic diseases classified elsewhere; E78.5 Hyperlipidemia, unspecified; E86.0 Dehydration; E87.6 Hypokalemia; R62.7 Adult failure to thrive; R31.9 Hematuria, unspecified; F32.9 Major depressive disorder, single episode, unspecified; K21.9 Gastro-esophageal reflux disease without esophagitis; E86.9 Volume depletion, unspecified; R82.81 Pyuria
CPT/HCPCS: 36415; 70450; 71045; 72125; 73030; 73560; 74176; 76937; 80053; 80305; 81001; 82272; 82550; 83540; 83550; 83605; 83735; 83880; 84145; 85025; 85027; 87040; 87081; 87088; 93005; 96374; 97110; 97112; 97116; 97161; 97530; 97535; 99285; G0378; J0696; J1756; J2405; J3480; J7030